=== PATIENT | male | born 1975 | race Caucasian/White ===

== ENCOUNTER 2016-12-13 11:48 | Day surgery (SDC) | payer OTHER ==
[2016-12-08 18:28] LABS: HEMATOCRIT 40.6 % (40.0-51.0); HEMOGLOBIN 13.7 g/dL (13.6-17.8)
[2016-12-08 18:54] LABS: ASCORBIC ACID (UR NOT ORDER) 40 (NEG); BILIRUBIN, URINE NEGATIVE (NEG); KETONE, URINE NEGATIVE (NEG); LEUKOCYTE ESTERASE(NOT OR NEG (NEG); WBC (NOT ORDERED) (RFLEX) 1 (0-5)
[2016-12-08 19:25] LABS: BUN (BLOOD UREA NITROGEN) 15 MG/DL (6-23); CALCIUM, SERUM 9.6 MG/DL (8.5-10.4); CHLORIDE, SERUM 109 MMOL/L (96-112); CO2 (CARBON DIOXIDE) 25 MMOL/L (24-34); CREATININE 1.01 MG/DL (0.70-1.30); GFR AFRICAN AMERICAN 105 ML/MIN (>=60); GFR NON AFRICAN AMERICAN 91 ML/MIN (>=60); GLUCOSE, SERUM 82 MG/DL (60-99); POTASSIUM, SERUM 4.5 MMOL/L (3.5-5.3); SODIUM, SERUM 144 MMOL/L (135-148)
--- NOTE | ~2016-12-13 | OP ---
Record Of Operation [facility] [address] [place]. [address] NAME: OSMIN BAEZ : 71 STATUS : [facility]#: [id number] AGE: 41 ADM/REG DATE : 12/13/16 MR#: [id number] REPORT SERV DATE: 12/13/16 DICTATED BY: GORDON YEUNG JR. 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 PROCEDURE PERFORMED: CO2 laser ablation of multiple condylomata approximately 15 in number. COMPLICATIONS: None. CONSULTATIONS: None. ANESTHESIA: General with laryngeal mask airway. SPECIMENS: None. DRAINS: None. ESTIMATED BLOOD LOSS: None. INDICATION: Mr. Baez is a 41-year-old gentleman who I have treated for penile condyloma in the past. He comes back today after multiple recurrences. We discussed the options of treatment in the office and decided to use potassium hydroxide and CO2 laser to ablate these lesions, however, there was no potassium hydroxide available today. There was acetic acid available, however, I did not wish to use that as I had not discussed it with the patient preoperatively. PROCEDURE IN DETAIL: After the patient was identified and proper informed consent was obtained, he was taken to the operating room. General anesthesia was performed without complication using a laryngeal mask airway. He was then prepped and draped in normal sterile fashion in the supine position. Using magnification lenses, I was able to identify multiple sites of condyloma. These were ablated using CO2 laser energy. We used smoke masks as well as using a suction device to remove the smoke from the air as quickly as possible to protect both the patient and the workers in the operating room. Once all of the condylomata have been ablated using the CO2 laser, I used Neosporin for dressing. The patient was awakened in the operating room and transferred to the postanesthesia care unit in stable condition. These lesions were scattered across the base and shaft of the penis along with the grey of the glans. KAELYN/ANASTASIYA Gordon Yeung Jr., M.D. Record Of Operation [address] [address] NAME: OSMIN BAEZ : 71 STATUS : [facility] PAT#: [id number] AGE: 41 ADM/REG DATE : 12/13/16 MR#: [id number] REPORT SERV DATE: 12/13/16 DICTATED BY: GORDON YEUNG JR. DATE: 12/13/16 REPORT STATUS : Draft TRANSCRIBED BY: LEXYL DATE: 12/13/16 / [id number] CC: Femi Cullen Jr., M.D.
[~2016-12-13 11:48] MED LIST: ALLEGRA180 PO; AMB10 PO; ASAB PO; CIALIS5 MG PO; COZAAR100 MG PO; DORYX100 MG PO; FLONASE NAS; HYDROCHLOROT12.5 MG PO; MELATONIN PO; MELATONIN1 M1 PO; MVI PO; NEUR300 PO; PRILOSEC OTC20 MG PO; VALERIAN ROOT PO; VALIUM PO; WELLXL150 PO
== END 2016-12-13 15:56 | disposition home or self-care (01) ==
LOC: SDC 11:48
PROVIDERS: Urology
PROC: [UNRECOGNIZED PROCEDURE] (principal; 2016-12-13 13:30)
DX: A63.0 Anogenital (venereal) warts (principal); I10 Essential (primary) hypertension; K21.9 Gastro-esophageal reflux disease without esophagitis; N40.1 Benign prostatic hyperplasia with lower urinary tract symptoms; N52.9 Male erectile dysfunction, unspecified; Z98.52 Vasectomy status; Z79.899 Other long term (current) drug therapy
CPT/HCPCS: 80048; 81001; 85014; 85018; 93005; A9270-GY; J0694; J2250; J2405; J3010